=== PATIENT | male | born 1990 | race Caucasian/White ===

== ENCOUNTER 2021-10-08 02:52 | Emergency (ER) | payer SELFPAY ==
--- NOTE | 2021-10-08 03:58 | EDPHYS ---
Physician Documentation [facility] Name: Bronson Ceballos Age: 31 yrs Sex: Male : 1990 Arrival Date: 10/08/2021 Time: 02:55 Bed 6 Private MD: ED Physician Gunnar Menendez HPI: 10/08 03:04 This 31 yrs old Male presents to ER via Unassigned with complaints of Wrist Injury. rn 03:04 The patient or guardian reports injury, pain. The complaints affect the right wrist rn diffusely. Onset: The symptoms/episode began/occurred just prior to arrival. Modifying factors: The symptoms are alleviated by holding still, the symptoms are aggravated by movement. Associated signs and symptoms: Pertinent negatives: cyanosis distally. The patient has not experienced similar symptoms in the past. The patient has not recently seen a physician. Pt reports punched drywall, hurt wrist, did not hit stud. Denies any pain to elbow/forearm/hand/fingers. Only pain to right wrist. . Historical: - Allergies: 03:14 Aspirin; lg3 - PMHx: 03:14 Diabetes mellitus; Type 1; lg3 - Immunization history:: Client reports receiving the 2nd dose of the Covid vaccine. - Social history:: Smoking status: Patient reports the use of cigarette tobacco products, smokes one pack cigarettes per day. - Family history:: not pertinent. - Hospitalizations: : No recent hospitalization is reported. ROS: 03:04 Constitutional: Negative for fever, chills, and weight loss, MS/Extremity: + right rn wrist pain and swelling Exam: 03:04 Constitutional: This is a well developed, well nourished patient who is awake, alert, rn and in no acute distress. MS/ Extremity: Pulses equal, no cyanosis. Neurovascular intact. + tenderness right wrist over distal radius and ulna, + mild swelling, no gross deformity. No tenderness or swelling of right hand/fingers/forearm/elbow. Vital Signs: 03:12 BP 127 / 92; Pulse 92; Resp 18; Temp 97.9; Pulse Ox 100% on R/A; Weight 63.5 kg (R); lg3 Height 5 ft. 9 in. (175.26 cm) (R); Pain 8/10; 04:11 BP 118 / 85; Pulse 85; Resp 16 S; Pulse Ox 100% on R/A; Pain 0/10; lg3 03:12 Body Mass Index 20.67 (63.50 kg, 175.26 cm) lg3 MDM: 02:57 Patient medically screened. rn 03:56 Differential diagnosis: wrist fracture, wrist contusion. Data reviewed: vital signs, rn nurses notes, radiologic studies, plain films, and as a result, I will discharge patient. Counseling: I had a detailed discussion with the patient and/or guardian regarding: the historical points, exam findings, and any diagnostic results supporting the discharge/admit diagnosis, radiology results, the need for outpatient follow up, to return to the emergency department if symptoms worsen or persist or if there are any questions or concerns that arise at home. Special discussion: I discussed with the patient/guardian in detail that at this point there is no indication for admission to the hospital. It is understood, however, that if the symptoms persist or worsen the patient needs to return immediately for re-evaluation. 10/08 03:03 Order name: XRAY Wrist RIGHT 3 view rn 10/08 03:59 Order name: Parker Wrap; Complete Time: 04:12 rn Administered Medications: No medications were administered Disposition Summary: 10/08/21 03:57 Discharge Ordered Location: Home rn Problem: new rn Symptoms: have improved rn Condition: Stable rn Diagnosis - Other specified sprain of right wrist rn Followup: rn - With: Private Physician - When: As needed - Reason: Recheck today's complaints, Re-evaluation by your physician Discharge Instructions: - Discharge Summary Sheet rn - Wrist Sprain, Adult rn Forms: - Medication Reconciliation Form rn - Thank You Letter rn - 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
--- NOTE | 2021-10-08 03:58 | ER ---
Nurse's Notes [facility] Name: Bronson Ceballos Age: 31 yrs Sex: Male : 1990 Arrival Date: 10/08/2021 Time: 02:55 Bed 6 Private MD: Diagnosis: Other specified sprain of right wrist Presentation: 10/08 03:12 Chief complaint: Patient states: States "I punched a wall", c/o wrist pain 8/10, lg3 numbness and tingling to fingers on right hand. Coronavirus screen: Vaccine status: Patient reports receiving the 1st dose of the Covid vaccine. At this time, the client does not indicate any symptoms associated with coronavirus-19. Ebola Screen: No symptoms or risks identified at this time. Initial Sepsis Screen: Does the patient meet any 2 criteria? No. Patient's initial sepsis screen is negative. Does the patient have a suspected source of infection? No. Patient's initial sepsis screen is negative. Risk Assessment: Do you want to hurt yourself or someone else? Patient reports no desire to harm self or others. Onset of symptoms was October 07, 2021 at 22:00. 03:12 Method Of Arrival: Wheelchair lg3 03:12 Acuity: RUDI 3 lg3 Triage Assessment: 03:14 General: Appears uncomfortable, Behavior is calm, cooperative. Pain: Complains of pain lg3 in right wrist Pain does not radiate. Pain currently is 8 out of 10 on a pain scale. Pain began 1 day ago. Is continuous. Neuro: Level of Consciousness is awake, alert, obeys commands, Oriented to person, place, time, situation. Derm: Skin is pink, warm \\T\\ dry. Musculoskeletal: Range of motion: limited in right wrist Swelling present in right wrist. Injury Description: States "I punched a wall". Historical: - Allergies: 03:14 Aspirin; lg3 - PMHx: 03:14 Diabetes mellitus; Type 1; lg3 - Immunization history:: Client reports receiving the 2nd dose of the Covid vaccine. - Social history:: Smoking status: Patient reports the use of cigarette tobacco products, smokes one pack cigarettes per day. - Family history:: not pertinent. - Hospitalizations: : No recent hospitalization is reported. Screenin:38 Abuse screen: Denies threats or abuse. Denies injuries from another. Nutritional aa9 screening: No deficits noted. Tuberculosis screening: No symptoms or risk factors identified. Fall Risk None identified. Assessment: 03:33 General: Appears comfortable, Behavior is cooperative. Pain: Complains of pain in left aa9 wrist Pain currently is 8 out of 10 on a pain scale. Pain began 10 PM yesterday after pt states, "I punched a dry wall". Vital Signs: 03:12 BP 127 / 92; Pulse 92; Resp 18; Temp 97.9; Pulse Ox 100% on R/A; Weight 63.5 kg (R); lg3 Height 5 ft. 9 in. (175.26 cm) (R); Pain 8/10; 04:11 BP 118 / 85; Pulse 85; Resp 16 S; Pulse Ox 100% on R/A; Pain 0/10; lg3 03:12 Body Mass Index 20.67 (63.50 kg, 175.26 cm) lg3 ED Course: 02:55 Patient arrived in ED. ja2 02:57 Gunnar Menendez MD is Attending Physician. rn 03:07 Emily Saxena, RN is Primary Nurse. aa9 03:14 Triage completed. lg3 03:14 Arm band placed on Patient placed in an exam room, on a stretcher, on pulse oximetry. lg3 03:30 XRAY Wrist RIGHT 3 view In Process Unspecified. EDMS 03:38 Patient has correct armband on for positive identification. Bed in low position. Call aa9 light in reach. 04:12 No provider procedures requiring assistance completed. Patient did not have IV access aa9 during this emergency room visit. Administered Medications: No medications were administered Medication: 04:13 VIS not applicable for this client. aa9 Outcome: 03:57 Discharge ordered by . rn 04:13 Discharged to home ambulatory. aa9 04:13 Condition: stable 04:13 Discharge instructions given to patient, significant other, Instructed on discharge instructions, follow up and referral plans. Demonstrated understanding of instructions, follow-up care. 04:13 Patient left the ED. aa9 Signatures: Dispatcher [employer] EDMS Gunnar Menendez MD MD rn Gibson, Lacie, RN RN lg3 Amparo Ralph 2 Emily Saxena RN RN aa9
[2021-10-08 06:39] VITALS: TEMP 97.9; O2SAT 100
[2021-10-08 06:41] VITALS: BP 118/85
--- NOTE | 2021-10-08 13:38 | RAD REPORT ---
EXAM DESCRIPTION: RAD - Wrist Right 3 View - 10/08/2021 3:28 am CLINICAL HISTORY: The patient is 31 years old and is Male; swelling, punched wall Wrist Right 3 View TECHNIQUE: Frontal, lateral and oblique views of the right wrist. COMPARISON: None FINDINGS/IMPRESSION: BONES/JOINTS: No fracture, subluxation, or dislocation identified in the rig t hand or wrist. However, the right fourth digit and fifth digit and carpometacarpal joint are subopt imally visualized due to patient positioning. If there is clinical suspicion for a right fifth digit or metacarpal fracture, reimaging with improved patient positioning may be beneficial. SOFT TISSUES: Tiny radiopaque foreign body noted in the distal pad of the right thumb Electronically signed by: Rosales Torres MD 10/08/2021 3:47 AM CDT Due to temporary technical issues with the PACS/Fluency reporting system, reports are being signed by the in house radiologists without review as a courtesy to insure prompt reporting. The interpreting radiologist is fully responsible for the content of the report.
== END 2021-10-08 04:13 | disposition home or self-care (01) ==
LOC: ER 02:52
DX: S63.591A Other specified sprain of right wrist, initial encounter (principal); E10.9 Type 1 diabetes mellitus without complications; F17.210 Nicotine dependence, cigarettes, uncomplicated; Z88.6 Allergy status to analgesic agent
CPT/HCPCS: 99283